=== PATIENT | male | born 1980 | race Caucasian/White ===

== ENCOUNTER 2016-09-10 12:42 | Emergency (ER) | payer OTHER ==
[2016-09-10 15:23] LABS: CALCIUM 10.2 mg/dL (8.5-10.1); CARBON DIOXIDE 29.5 mmol/L (21-32); CHLORIDE SERUM 106 mmol/L (98-107); CREATININE SERUM 0.9 mg/dL (0.7-1.3); GFR1 > 60 mL/min; GLUCOSE SERUM 104 mg/dL (74-106); POTASSIUM SERUM 4.3 mmol/L (3.5-5.1); SODIUM SERUM 141 mmol/L (136-145)
[2016-09-10 15:34] VITALS: BP 131/85
== END 2016-09-10 16:12 | disposition home or self-care (01) ==
LOC: ED 12:42
PROVIDERS: Emergency Medicine
DX: K52.9 Noninfective gastroenteritis and colitis, unspecified (principal)
CPT/HCPCS: J0780; J1885

== ENCOUNTER 2016-10-01 17:41 | Inpatient (IN) | payer OTHER ==
[~2016-10-01] VITALS: Ht 175.3 cm; Wt 91.7 kg
[2016-10-01 18:33] LABS: BASOPHIL % 0.8 % (0-2); PLATELET COUNT 220 x10^3mcL (130-400); RED CELL DISTRIBUTION WIDTH 13.4 % (11.5-14.5)
[2016-10-01 18:36] LABS: microscopic required? YES; urine erythrocyte 3+ (NEGATIVE)
[2016-10-01 18:41] LABS: CALCIUM 10.4 mg/dL (8.5-10.1); CARBON DIOXIDE 28.5 mmol/L (21-32); CHLORIDE SERUM 105 mmol/L (98-107); CREATININE SERUM 1.4 mg/dL (0.7-1.3); GFR1 > 60 mL/min; GLUCOSE SERUM 119 mg/dL (74-106); POTASSIUM SERUM 3.9 mmol/L (3.5-5.1); SODIUM SERUM 140 mmol/L (136-145)
[2016-10-01 18:45] LABS: ALBUMIN 3.9 g/dL (3.4-5.0); ALKALINE PHOSPHATASE 137 U/L (46-116); ALT/SGPT 46 U/L (16-63); AST/SGOT 26 U/L (15-37); BILIRUBIN TOTAL 0.4 mg/dL (0.20-1.00); LIPASE 121 IU/L (73-393); TOTAL PROTEIN, SERUM 7.2 g/dL (6.4-8.2)
[2016-10-01 20:57] VITALS: BP 139/102
[2016-10-01] MEDS ORDERED: EFFEXOR XR150 MG PO (21:21)
[2016-10-01] MEDS ORDERED: STRATTERA40 MG PO (21:23)
[2016-10-01] MEDS ORDERED: PROPRANOLOL HCL40 MG PO (21:23)
[2016-10-01 21:40] LABS: CHOLESTEROL/HDL RATIO 3.8; MAGNESIUM 2.2 mg/dL (1.8-2.4); PHOSPHOROUS 3.8 mg/dL (2.5-4.9)
[2016-10-01 21:49] LABS: FREE T4 1.07 ng/dL (0.76-1.46); FREE THYROXINE INDEX 2.9 ug/dL (1.4-4.5); T4(THYROXINE) 8.4 ug/dL (4.7-13.3)
[2016-10-01 21:51] LABS: T3 TOTAL 1.06 ng/mL
[2016-10-02 06:00] VITALS: BP 121/73
[2016-10-02 06:07] LABS: BASOPHIL % 0.4 % (0-2); PLATELET COUNT 183 x10^3mcL (130-400)
[2016-10-02 06:18] LABS: CALCIUM 9.2 mg/dL (8.5-10.1); CREATININE SERUM 1.6 mg/dL (0.7-1.3)
[2016-10-02 09:33] VITALS: BP 138/87
[2016-10-02 13:40] VITALS: BP 132/76
[2016-10-02 17:10] VITALS: BP 150/84
[2016-10-02 20:03] VITALS: BP 123/87
[2016-10-03 05:42] VITALS: BP 135/77
[2016-10-03 06:14] LABS: CALCIUM 9.2 mg/dL (8.5-10.1); CARBON DIOXIDE 27.7 mmol/L (21-32); CHLORIDE SERUM 112 mmol/L (98-107); CREATININE SERUM 1.1 mg/dL (0.7-1.3); GFR1 > 60 mL/min; GLUCOSE SERUM 86 mg/dL (74-106); MAGNESIUM 1.9 mg/dL (1.8-2.4); PHOSPHOROUS 2.7 mg/dL (2.5-4.9); SODIUM SERUM 147 mmol/L (136-145)
[2016-10-03 06:28] LABS: BASOPHIL % 0.5 % (0-2); PLATELET COUNT 167 x10^3mcL (130-400); RED CELL DISTRIBUTION WIDTH 13.2 % (11.5-14.5)
[2016-10-03] MEDS ORDERED: FLO4 PO (09:00)
[2016-10-03] MEDS ORDERED: COL100 PO (09:00)
[2016-10-03] MEDS ORDERED: CIPRO500 MG PO (09:01)
[2016-10-03] MEDS ORDERED: LAC PO (09:02)
[2016-10-03] MEDS ORDERED: PYRIDIUM100 MG PO (09:04)
[2016-10-03] MEDS ORDERED: NORCO1 TA2 PO (09:05)
[2016-10-03 09:36] VITALS: BP 133/82
== END 2016-10-03 11:13 | disposition home or self-care (01) | DRG 446 ==
LOC: ED 17:41 → MU 19:49 → DU 19:49 → MU 10-02 09:01
PROVIDERS: Family Medicine; Specialist; Urology; ADMIT Family Medicine
PROC: 0TC78ZZ Extirpation of Matter from Left Ureter, Via Natural or Artificial Opening Endoscopic (ICD-10-PCS; 2016-10-02)
PROC: 0T778DZ Dilation of Left Ureter with Intraluminal Device, Via Natural or Artificial Opening Endoscopic (ICD-10-PCS; principal; 2016-10-02 14:30)
DX: N13.2 Hydronephrosis with renal and ureteral calculous obstruction (principal); N17.0 Acute kidney failure with tubular necrosis; K21.9 Gastro-esophageal reflux disease without esophagitis; R31.9 Hematuria, unspecified; E83.52 Hypercalcemia; F43.10 Post-traumatic stress disorder, unspecified; F17.210 Nicotine dependence, cigarettes, uncomplicated; I10 Essential (primary) hypertension; F32.9 Major depressive disorder, single episode, unspecified; F41.9 Anxiety disorder, unspecified; E87.0 Hyperosmolality and hypernatremia; D64.9 Anemia, unspecified; E78.5 Hyperlipidemia, unspecified; Z87.442 Personal history of urinary calculi; Z68.29 Body mass index [BMI] 29.0-29.9, adult
CPT/HCPCS: 83880; 84439; C1769; C2625; J0690; J1170; J1940; J2060; J2270; J2405; J2704; J3010; J3490; J7030; J7120; Q9958; Q9967

== ENCOUNTER 2017-05-06 11:30 | Emergency (ER) | payer BC ==
[~2017-05-06 11:30] MED LIST: CIPRO500 MG PO; COL100 PO; EFFEXOR XR150 MG PO; FLO4 PO; LAC PO; NORCO1 TA2 PO; PROPRANOLOL HCL40 MG PO; PYRIDIUM100 MG PO; STRATTERA40 MG PO
[2017-05-06 11:34] VITALS: BP 157/103
== END 2017-05-06 15:19 | disposition home or self-care (01) ==
LOC: ED 11:30
DX: S39.012A Strain of muscle, fascia and tendon of lower back, initial encounter (principal); M54.42 Lumbago with sciatica, left side; I10 Essential (primary) hypertension; V00.311A Fall from snowboard, initial encounter; Y93.23 Activity, snow (alpine) (downhill) skiing, snowboarding, sledding, tobogganing and snow tubing; Y99.8 Other external cause status; Y92.89 Other specified places as the place of occurrence of the external cause
CPT/HCPCS: J1885